=== PATIENT | male | born 1990 | race Caucasian/White ===

== ENCOUNTER 2017-07-30 20:27 | Emergency (ER) | payer OTHER ==
[~2017-07-30] VITALS: Ht 170.2 cm; Wt 85.8 kg
[2017-07-30 20:30] VITALS: Ht 170.2 cm; Wt 85.8 kg
[2017-07-30] MEDS ORDERED: HYDROCODONE/APAP (10/325) TAB PO ONE (22:00)
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
[2017-07-31] MEDS ORDERED: IBUP800T25 PO (00:18)
[2017-07-31] MEDS ORDERED: HYDR-902 PO (00:18)
[2017-07-31] MEDS ORDERED: ACET500C5 PO (00:18)
[2017-07-31] MEDS ORDERED: AMOX1TAB10 PO (00:19)
[2017-07-31 00:32] VITALS: BP 112/65; PULSE 87; RESP 17
== END 2017-07-31 00:32 | disposition home or self-care (01) ==
LOC: FTE 20:27
DX: S02.2XXA Fracture of nasal bones, initial encounter for closed fracture (principal); S02.92XA Unspecified fracture of facial bones, initial encounter for closed fracture; Y08.89XA Assault by other specified means, initial encounter
CPT/HCPCS: 70450; 70486; 72125; Z7502; Z7610